=== PATIENT | female | born 1980 | race Caucasian/White ===

== ENCOUNTER 2018-01-15 18:35 | Emergency (ER) | payer OTHER ==
[~2018-01-15] VITALS: Ht 167.6 cm; Wt 72.7 kg
[2018-01-15 18:39] VITALS: Ht 167.6 cm; Wt 72.7 kg
[2018-01-15] MEDS ORDERED: PROZAC10 MG PO (18:40)
[2018-01-15 19:21] LABS: BASOPHILS 0.1 % (0-2); EOSINOPHILS 0.5 % (0-7); HEMATOCRIT 37.7 % (36.0-48.0); HEMOGLOBIN 12.9 g/dL (12-16); IMMATURE GRANULOCYTES 0.1 % (0-5); LYMPHOCYTES 26.5 % (15-50); MCH 32.9 pg (26.0-34.0); MCHC 34.2 g/dL (31.0-37.0); MCV 96.2 fL (80.0-100.0); MEAN PLATELET VOLUME 10.1 fL (7.4-10.4); MONOCYTES 6.9 % (2-11); NEUTROPHILS 65.9 % (40-80); PLATELET COUNT 273 10x3/uL (130-400); RBC 3.92 10x6/uL (4.00-5.40); RDW 13.4 % (11.5-14.5)
[2018-01-15 19:29] LABS: APTT 28.9 SECONDS (22.8-39.4); INR 1.07 (0.85-1.17); PROTIME 13.5 SECONDS (11.6-15.0)
[2018-01-15 19:35] LABS: ALBUMIN 3.8 g/dL (3.4-5.0); ALKALINE PHOSPHATASE 50 U/L (46-116); ALT (SGPT) 17 U/L (10-68); BILIRUBIN - TOTAL 0.33 mg/dL (0.2-1.3); CALC OSMOLALITY 276 mosm/kg (275-300); CALCIUM 8.8 mg/dL (8.5-10.1); CHLORIDE - SERUM 103 mmol/L (98-107); CREATININE - SERUM 0.8 mg/dL (0.6-1.3); GLUCOSE 83 mg/dL (74-106); POTASSIUM - SERUM 3.3 mmol/L (3.5-5.1); PROTEIN - SERUM 7.1 g/dL (6.4-8.2); SODIUM 139 mmol/L (136-145); UREA NITROGEN 12 mg/dL (7-18); eGFR NON AFRICAN AMERICAN 85 mL/min (90-120)
[2018-01-15] MEDS ORDERED: DOLOBID500 MG PO (20:33)
[2018-01-15 21:31] VITALS: BP 132/90
== END 2018-01-15 21:33 | disposition home or self-care (01) ==
LOC: D.ER 18:35
PROVIDERS: Family Medicine
DX: R20.2 Paresthesia of skin (principal); V43.62XA Car passenger injured in collision with other type car in traffic accident, initial encounter; Y93.89 Activity, other specified; Y92.410 Unspecified street and highway as the place of occurrence of the external cause

== ENCOUNTER 2018-06-22 05:16 | Emergency (ER) | payer OTHER ==
[~2018-06-22] VITALS: Ht 152.4 cm; Wt 63.5 kg
[~2018-06-22 05:16] MED LIST: DOLOBID500 MG PO; PROZAC10 MG PO
[2018-06-22 05:18] VITALS: Ht 152.4 cm; Wt 63.5 kg
[2018-06-22 05:45] LABS: BASOPHILS 0.1 % (0-2); EOSINOPHILS 0.4 % (0-7); HEMATOCRIT 39.5 % (36.0-48.0); HEMOGLOBIN 13.4 g/dL (12-16); IMMATURE GRANULOCYTES 0.4 % (0-5); LYMPHOCYTES 12.2 % (15-50); MCH 32.8 pg (26.0-34.0); MCHC 33.9 g/dL (31.0-37.0); MCV 96.8 fL (80.0-100.0); MEAN PLATELET VOLUME 9.9 fL (7.4-10.4); MONOCYTES 7.1 % (2-11); NEUTROPHILS 79.8 % (40-80); PLATELET COUNT 290 10x3/uL (130-400); RBC 4.08 10x6/uL (4.00-5.40); RDW 13.5 % (11.5-14.5); WBC 16.6 10x3/uL (4.8-10.8)
[2018-06-22 05:57] LABS: APPEARANCE HAZY (CLEAR); BILIRUBIN NEGATIVE (NEGATIVE); COLOR PINK (YELLOW); GLUCOSE NEGATIVE (NEGATIVE); KETONE NEGATIVE (NEGATIVE); NITRITE NEGATIVE (NEGATIVE); PROTEIN NEGATIVE (NEGATIVE); SPECIFIC GRAVITY 1.015 (1.005-1.020); UROBILINOGEN NORMAL (NORMAL)
[2018-06-22 05:58] LABS: BACTERIA NONE SEEN /hpf (NONE SEEN); EPITHELIAL CELLS NSEEN /hpf (0-5); RED CELLS - URINE 25-50 /hpf (0-5); WHITE CELLS - URINE 0-5 /hpf (0-5)
[2018-06-22 06:27] LABS: ALKALINE PHOSPHATASE 58 U/L (46-116); ALT (SGPT) 27 U/L (10-68); BILIRUBIN - TOTAL 0.45 mg/dL (0.2-1.3); CALC OSMOLALITY 280 mosm/kg (275-300); CALCIUM 8.8 mg/dL (8.5-10.1); CARBON DIOXIDE 28.3 mmol/L (21.0-32.0); CHLORIDE - SERUM 102 mmol/L (98-107); CREATININE - SERUM 0.8 mg/dL (0.6-1.3); LIPASE 107 U/L (73-393); POTASSIUM - SERUM 3.5 mmol/L (3.5-5.1); PROTEIN - SERUM 7.4 g/dL (6.4-8.2); SODIUM 140 mmol/L (136-145); UREA NITROGEN 12 mg/dL (7-18); eGFR NON AFRICAN AMERICAN 85 mL/min (90-120)
[2018-06-22 06:31] LABS: HCG SERUM NEGATIVE (NEGATIVE)
[2018-06-22 06:42] LABS: GLUCOSE 131 mg/dL (74-106)
[2018-06-22] MEDS ORDERED: TORADOL10 MG PO (08:09)
[2018-06-22 08:26] VITALS: BP 100/63
== END 2018-06-22 08:25 | disposition home or self-care (01) ==
LOC: D.ER 05:16
PROVIDERS: Family Medicine
DX: N20.1 Calculus of ureter (principal); R11.2 Nausea with vomiting, unspecified

== ENCOUNTER 2019-04-07 18:07 | Inpatient (IN) | payer OTHER ==
[~2019-04-07] VITALS: Ht 152.4 cm; Wt 63.5 kg
[~2019-04-07 18:07] MED LIST changes: +TORADOL10 MG PO
[2019-04-07 18:41] LABS: APPEARANCE CLOUDY (CLEAR); BILIRUBIN NEGATIVE (NEGATIVE); COLOR YELLOW (YELLOW); GLUCOSE NEGATIVE (NEGATIVE); KETONE NEGATIVE (NEGATIVE); NITRITE NEGATIVE (NEGATIVE); PROTEIN 2+ mg/dL (NEGATIVE); UROBILINOGEN NORMAL (NORMAL)
[2019-04-07 18:49] LABS: BACTERIA MODERATE /hpf (NEGATIVE); EPITHELIAL CELLS 0-5 /hpf (0-5); WHITE CELLS - URINE 0-5 /hpf (NEGATIVE)
[2019-04-07 20:33] VITALS: BP 130/76
[2019-04-07 20:42] LABS: BASOPHILS 0.1 % (0-2); HEMATOCRIT 42.8 % (36.0-48.0); HEMOGLOBIN 14.5 g/dL (12-16); IMMATURE GRANULOCYTES 0.1 % (0-5); LYMPHOCYTES 23.9 % (15-50); MCH 33.2 pg (26.0-34.0); MCHC 33.9 g/dL (31.0-37.0); MCV 97.9 fL (80.0-100.0); MEAN PLATELET VOLUME 10.9 fL (7.4-10.4); MONOCYTES 9.6 % (2-11); NEUTROPHILS 64.3 % (40-80); PLATELET COUNT 292 10x3/uL (130-400); RBC 4.37 10x6/uL (4.00-5.40); RDW 13.3 % (11.5-14.5); WBC 8.6 10x3/uL (4.8-10.8)
[2019-04-07 20:49] LABS: CALC OSMOLALITY 279 mosm/kg (275-300); CARBON DIOXIDE 28.9 mmol/L (21.0-32.0); CHLORIDE - SERUM 104 mmol/L (98-107); CREATININE - SERUM 0.6 mg/dL (0.6-1.3); GLUCOSE 94 mg/dL (74-106); POTASSIUM - SERUM 3.9 mmol/L (3.5-5.1); SODIUM 141 mmol/L (136-145); UREA NITROGEN 9 mg/dL (7-18); eGFR NON AFRICAN AMERICAN > 90 mL/min (90-120)
[2019-04-07 20:55] LABS: ALKALINE PHOSPHATASE 59 U/L (46-116); ALT (SGPT) 27 U/L (10-68); BILIRUBIN - TOTAL 0.17 mg/dL (0.2-1.3); PROTEIN - SERUM 7.6 g/dL (6.4-8.2)
--- NOTE | 2019-04-07 23:25 | NUR ---
NO TELEMETRY AVAILABLE AT THIS TIME.
[2019-04-07 23:27] VITALS: BP 134/81; BMI 27.3
--- NOTE | 2019-04-08 02:49 | NUR ---
VINNIE WITH ER STAFF AND FAMILY. IV TO LEFT AC WITH NS AT 200ML/HR. WATER AND CALL LIGHT IN REACH. ALERT AND ORENTED ABLE TO VOICE NEEDS AND WANTS TO STAFF. C/O LEFT FLANF AND ABD PAIN RELATED TO LEFT RENAL STONE.
[2019-04-08 04:00] VITALS: BP 106/67
--- NOTE | 2019-04-08 07:12 | NUR ---
AWAKE AND ALERT. ORIENTED X3. NO C/O AT THIS TIME. REPORTS PAIN TO LOWER ABDOMEN AND BACK WITH MOVEMENT. WILL MONITOR. LUNGS ARE CLEAR BIALTERALLY,NO COUGH NOTED. SKIN IS INTACT WTIHOUT REDNESS. IV TO LEFT AC IS PATENT WITHOUT REDNESS AT INSERTION SITE. DENIES NEEDS. FAMILY AT BEDSIDE.
[2019-04-08 08:54] VITALS: Ht 152.4 cm; Wt 63.5 kg
--- NOTE | 2019-04-08 09:14 | NUR ---
REQUESTED AND GIVEN 0.5MG MORPHINE SLOW IVP FOR C/O ABDOMINAL PAIN LEVEL 10. WILL MONITOR
[2019-04-08 10:12] VITALS: BP 115/81
--- NOTE | 2019-04-08 11:02 | NUR ---
NO TELEMETRY UNITS AVAILABEL AT THIS TIME.
[2019-04-08 12:47] VITALS: BP 113/72
--- NOTE | 2019-04-08 12:50 | NUR ---
OFF UNIT VIA BED TO SURGERY.
[2019-04-08 13:48] VITALS: BP 105/71
--- NOTE | 2019-04-08 13:50 | NUR ---
RETURNED FROM SURGERY. UP TO BR WITH ONE PERSON ASSIST. VOIDED 100CC BLOOD TINGED URINE. WILL MONITOR. FAMILY IN ROOM.
--- NOTE | 2019-04-08 14:00 | NUR ---
UP TO BR AGAIN AND VOIDED 100CC BLOOD TINGED URINE.
[2019-04-08 14:05] VITALS: BP 115/73
--- NOTE | 2019-04-08 15:00 | NUR ---
ATE ABOUT HALF OF A TURKEY SANDWICH WITHOUT NAUSEA OR INCREASED PAIN. ANXIOUS TO GO HOME.
[2019-04-08] MEDS ORDERED: Levaquin PO (16:47)
[2019-04-08] MEDS ORDERED: HYDROCODON-ACE1 EAC7 PO (16:53)
[2019-04-08] MEDS ORDERED: FLOMAX0.4 MG PO (16:54)
--- NOTE | 2019-04-08 17:20 | NUR ---
DISCHARGED TO HOME AMBULATORY WITH . DISCHARGE INSTRUCTIONS GIVEN BOTH VERBALLY AND WRITTEN. ALL QUESTIONS ANSWERED. PATIENT VERBALIZED UNDERSTANDING OF SAME. NEEDED PRESCRIPTIONS GIVEN TO PATIENT. IV TO LEFT AC D/C WITH CATHETER INTACT. ALL BELONGINGS WITH PATIENT.
--- NOTE | 2019-04-09 08:35 | OP ---
PATIENT NAME: CLAYTON WEEKS MEDICAL RECORD: [id number] :80 LOCATION:D[facility] ADMISSION DATE:04/07/19 SURGEON: JOSHUA NORRIS MD DATE OF OPERATION: 04/08/2019 SURGEON: Joshua Norris MD ANESTHESIA: TIVA by Selina More CRNA. DIAGNOSIS: 6 x 7 mm left proximal ureteral stone, 4 mm left renal stone. PROCEDURE: Cystoscopy, left retrograde pyelogram, left ureteral stent insertion 6-Pakistani x 24 cm with string attached. FINDINGS: Radiodense left proximal ureteral stone 6 x 7 mm. ESTIMATED BLOOD LOSS: None. CLINICAL HISTORY: This is a 38-year-old female with a previous history of kidney stones. She came to the Emergency Room with a 2-day history of left flank pain. A CT scan shows a stone in the left UP junction, which is 6 x 7 mm in size. There is also a nonobstructive 4-mm left renal stone. She was admitted for pain control. Today, she comes to have a left ureteral stent inserted. She will have lithotripsy arranged as an outpatient. SHE IS ALLERGIC TO MORPHINE. She was given Ancef low vision therapist to the OR. DESCRIPTION OF PROCEDURE: The patient was given IV sedation. She was then placed into the lithotomy position and prepped and draped. Fluoroscopy revealed the radiodensity adjacent to the vertebral body adjacent to the L2 vertebral body of the proximal ureteral stone. We confirmed this by performing cystoscopy. Cystoscopy revealed some inflammation of the bladder wall, but there were no bladder tumors. The left ureteral orifice was intubated with an open-ended ureteral catheter. She has single ureteral orifices on each side. A retrograde pyelogram was performed by injecting with diluted contrast. This confirmed that the radiodensity we saw was indeed the ureteral calculus. There was hydronephrosis proximal to the stone. A Sensor wire was then inserted through the lumen of the ureteral catheter and it went past the stone. Over the wire, we inserted a 6-Pakistani x 24 cm left ureteral stent. Once the stent was in correct position, the wire was withdrawn entirely. The proximal end was seen to coil properly. The distal end was pushed into the bladder using a pusher. The bladder was then emptied through the scope and the scope was removed. The string on the distal end of the stent is maintained. It was taped to the suprapubic area with a small piece of Tegaderm. The patient can go home today and we can see her back as an outpatient next week for lithotripsy. TRANSINT:[id number] Voice Confirmation ID: [id number] DOCUMENT ID: [id number] OPERATIVE REPORT [id number] CLAYTON WEEKS ROBERT S MD at 0835 CC: [id number] DICTATION DATE: 04/08/19 1332 DIRECTOR DATA MANAGEMENT: 04/08/19 2226 DIS IN 04/08/19 [id number] [place] [address]
== END 2019-04-08 17:20 | disposition home or self-care (01) | DRG 660 ==
LOC: D.ER 18:07 → D.MS 21:02
PROVIDERS: Emergency Medicine; Family Medicine; Urology; ADMIT Family Medicine; ATTEND Family Medicine
PROC: 0T778DZ Dilation of Left Ureter with Intraluminal Device, Via Natural or Artificial Opening Endoscopic (ICD-10-PCS; principal; 2019-04-08 11:15)
DX: N13.2 Hydronephrosis with renal and ureteral calculous obstruction (principal); F17.203 Nicotine dependence unspecified, with withdrawal; N39.0 Urinary tract infection, site not specified

== ENCOUNTER 2019-04-15 09:54 | Day surgery (SDC) | payer OTHER ==
[~2019-04-15] VITALS: Ht 152.4 cm; Wt 63.5 kg
[~2019-04-15 09:54] MED LIST changes: +FLOMAX0.4 MG PO; +HYDROCODON-ACE1 EAC7 PO; +Levaquin PO
[2019-04-15 10:24] LABS: BASOPHILS 0.1 % (0-2); EOSINOPHILS 4.3 % (0-7); HEMATOCRIT 42.4 % (36.0-48.0); HEMOGLOBIN 14.2 g/dL (12-16); IMMATURE GRANULOCYTES 0.2 % (0-5); LYMPHOCYTES 20.8 % (15-50); MCH 32.8 pg (26.0-34.0); MCHC 33.5 g/dL (31.0-37.0); MCV 97.9 fL (80.0-100.0); MEAN PLATELET VOLUME 10.4 fL (7.4-10.4); MONOCYTES 7.2 % (2-11); NEUTROPHILS 67.4 % (40-80); PLATELET COUNT 317 10x3/uL (130-400); RBC 4.33 10x6/uL (4.00-5.40); RDW 13.2 % (11.5-14.5); WBC 8.8 10x3/uL (4.8-10.8)
[2019-04-15 10:38] LABS: INR 0.95 (0.85-1.17); PROTIME 12.6 SECONDS (11.6-15.0)
[2019-04-15 10:39] LABS: APTT 29.9 SECONDS (22.8-39.4)
[2019-04-15 11:29] VITALS: BP 117/89; Ht 152.4 cm; Wt 63.5 kg
--- NOTE | 2019-04-15 18:27 | NUR ---
1750 IV REMOVED AND PRESSURE HELD. INSTRUCTIONS GIVEN
--- NOTE | 2019-04-16 09:27 | OP ---
PATIENT NAME: CLAYTON WEEKS MEDICAL RECORD: [id number] :80 LOCATION:D.OPS ADMISSION DATE: SURGEON: JOSHUA NORRIS MD DATE OF OPERATION: 04/15/2019 SURGEON: Joshua Norris MD ANESTHESIA: General anesthesia, Gaby Guerrero CRNA. DIAGNOSIS: Left 6 x 7 mm renal stone. PROCEDURE: Left ESWL times 2000 shocks. FINDINGS: Radiodense 6 x 7 mm left renal stone. A 4 mm renal stone could not be seen. ESTIMATED BLOOD LOSS: None. CLINICAL HISTORY: This is a 38-year-old female, who has a history of multiple myeloma and left facial skin cancer, which has been resected as well as kidney stones. She came to the Emergency Room with left flank pain. CT revealed a kidney stone as 4 mm in size as well as a 6 x 7 mm stone obstructing the left UP junction and causing hydronephrosis. She was admitted on April 07, 2019. On 04/08/2019, she had cystoscopy and insertion of a left ureteral stent. She comes now to have the stone treated with lithotripsy. SHE IS ALLERGIC TO MORPHINE. She was given Ancef emissions repair technician to the OR. DESCRIPTION OF PROCEDURE: The patient was given induction of general anesthesia in supine position. The stone was visualized. We could not find the 4-mm stone, but the 6 x 7 mm stone was clearly visible. 2000 shocks were given to the stone and the stone was seen to break up into a diffuse cloud. I decided to not give any further treatments as this would only traumatize the kidney without serving any further benefit. The patient was then awakened and brought to the recovery room. I will see her back in followup in 2 weeks' time with a KUB. If the patient has passed her stone fragments, then we can remove the stent at that time. TRANSINT:[id number] Voice Confirmation ID: [id number] DOCUMENT ID: [id number] JOSHUA NORRIS MD at 0927 CC: [id number] DICTATION DATE: 04/15/19 1709 SOFTWARE CLERK: 04/16/19 [id number] [facility] 04/15/19 [place] [address]
== END 2019-04-15 18:00 | disposition home or self-care (01) ==
LOC: D.OPS 09:54 → D.PAN 12:45 → D.OPS 13:00
PROVIDERS: Anesthesiology; ATTEND Urology
DX: N20.0 Calculus of kidney (principal)

== ENCOUNTER 2020-01-02 00:43 | Emergency (ER) | payer OTHER ==
[~2020-01-02] VITALS: Ht 152.4 cm; Wt 63.6 kg
[2020-01-02 00:54] VITALS: Ht 152.4 cm; Wt 63.6 kg
[2020-01-02 00:57] LABS: BASOPHILS 0.1 % (0-2); HEMOGLOBIN 13.4 g/dL (12-16); IMMATURE GRANULOCYTES 0.2 % (0-5); LYMPHOCYTES 49.8 % (15-50); MCH 33.7 pg (26.0-34.0); MCHC 34.4 g/dL (31.0-37.0); MEAN PLATELET VOLUME 9.7 fL (7.4-10.4); MONOCYTES 9.3 % (2-11); NEUTROPHILS 38.6 % (40-80); PLATELET COUNT 313 10x3/uL (130-400); RBC 3.98 10x6/uL (4.00-5.40); RDW 13.3 % (11.5-14.5); WBC 13.8 10x3/uL (4.8-10.8)
[2020-01-02 01:06] LABS: CALC OSMOLALITY 275 mosm/kg (275-300); CALCIUM 8.7 mg/dL (8.5-10.1); CARBON DIOXIDE 26.1 mmol/L (21.0-32.0); CHLORIDE - SERUM 104 mmol/L (98-107); CREATININE - SERUM 0.7 mg/dL (0.6-1.3); GLUCOSE 83 mg/dL (74-106); POTASSIUM - SERUM 3.8 mmol/L (3.5-5.1); SODIUM 138 mmol/L (136-145); UREA NITROGEN 14 mg/dL (7-18); eGFR NON AFRICAN AMERICAN > 90 mL/min (90-120)
[2020-01-02 01:07] LABS: APTT 23.5 SECONDS (22.8-39.4); INR 0.87 (0.85-1.17); PROTIME 11.8 SECONDS (11.6-15.0)
[2020-01-02 01:21] LABS: ALBUMIN 3.5 g/dL (3.4-5.0); ALKALINE PHOSPHATASE 69 U/L (30-120); ALT (SGPT) 21 U/L (10-68); BILIRUBIN - TOTAL 0.24 mg/dL (0.2-1.3); CKMB 0.6 U/L (0.0-3.6); CREATINE KINASE 114 UL (21-215); LIPASE 110 U/L (73-393); PROTEIN - SERUM 6.9 g/dL (6.4-8.2)
[2020-01-02 01:53] LABS: BILIRUBIN NEGATIVE (NEGATIVE); KETONE NEGATIVE (NEGATIVE); NITRITE NEGATIVE (NEGATIVE); UROBILINOGEN NORMAL mg/dL (< 2)
[2020-01-02 02:01] LABS: UDS - AMPHET NEGATIVE QUAL (NEGATIVE); UDS - BARB NEGATIVE QUAL (NEGATIVE); UDS - BENZO NEGATIVE QUAL (NEGATIVE); UDS - COCAINE NEGATIVE QUAL (NEGATIVE); UDS - OPIATE NEGATIVE QUAL (NEGATIVE); UDS - PCP NEGATIVE QUAL (NEGATIVE); UDS - THC POSITIVE QUAL (NEGATIVE)
[2020-01-02] MEDS ORDERED: ZOFRAN4 MG PO (02:53)
[2020-01-02 03:17] VITALS: BP 125/87
== END 2020-01-02 03:18 | disposition home or self-care (01) ==
LOC: D.ER 00:43
PROVIDERS: Family Medicine
DX: R56.9 Unspecified convulsions (principal); S01.01XA Laceration without foreign body of scalp, initial encounter; X58.XXXA Exposure to other specified factors, initial encounter

== ENCOUNTER 2020-08-14 14:30 | Outpatient (CLI) | payer OTHER ==
[2020-01-02 00:54] VITALS: BMI 27.3
[~2020-08-14 14:30] MED LIST changes: +ZOFRAN4 MG PO
== END 2020-08-14 23:59 | disposition home or self-care (01) ==
LOC: D.MAMMO 14:30
PROVIDERS: ATTEND Family Medicine
DX: N63.21 Unspecified lump in the left breast, upper outer quadrant (principal)